=== PATIENT | female | born 1990 | race Caucasian/White ===

== ENCOUNTER 2018-03-05 22:50 | Emergency (ER) | payer BC, SELFPAY ==
[2018-03-05 22:51] VITALS: BP 110/74; PULSE 103; RESP 16; TEMP 37.9; O2SAT 100; BMI 28.3
--- NOTE | 2018-03-05 23:17 | EKG12_ITS ---
Test Reason : SYNCOPE Blood Pressure : / mmHG Vent. Rate : 089 BPM Atrial Rate : 089 BPM P-R Int : 166 ms QRS Dur : 108 ms QT Int : 362 ms P-R-T Axes : 063 076 056 degrees QTc Int : 440 ms Normal sinus rhythm Normal ECG Confirmed by MAURICE COPELAND, MARIA ESTHER ([id number]), business editor LUCAS ESQUIVEL ([id number] on 03/09/2018 1:45:26 PM Referred By: ATIF Confirmed By:MARIA ESTHER RICHARDS MD
--- NOTE | 2018-03-05 23:20 | ED.RN ---
NO OLD EKG'S IN MUSE
[2018-03-05 23:46] LABS: Mucous, Urine 0 SEEN /hpf (<or=2+); Red Blood Cells-Urine 0 SEEN /hpf (0-5); White Blood Cells 0 SEEN /hpf (0-5)
[2018-03-05] MEDS: 0.9% Normal Saline 1,000 ML 1000 ML IV (23:46)
[2018-03-05] MEDS: Ondansetron 4 MG/2 ML Vial IV (23:46)
[2018-03-05 23:48] VITALS: BP 115/65; BP 115/78; BP 121/71; PULSE 101; PULSE 109; PULSE 98
[2018-03-05 23:49] LABS: Color, Urine Yellow (Yellow); Glucose, Dipstick Normal (Normal); Ketone-Dipstick 5 mg/dl (Negative); Leukocyte Esterase-Dipstick Negative /ul (Negative); Nitrite-Dipstick Negative (Negative); Occult Blood-Urine Negative /ul (Negative); Protein-Dipstick Negative (Negative); Urine Bilirubin Dipstick Negative (Negative); Urine Clarity Clear (Clear); Urine Urobilinogen Normal (Normal)
[2018-03-05 23:52] LABS: Internal QC Validated? YES +Cl - CLEAR BKGD; Pregnancy, Urine Negative Negative
[2018-03-05 23:55] LABS: Squamous Epithelial Cells - UA 0-5 SEEN /hpf (5-10)
[2018-03-05 23:56] LABS: Bacteria RARE /hpf (None Seen)
[2018-03-05 23:56] LABS: ALB/GLOB Ratio 1.1 RATIO (0.9-2.4); AST(SGOT) 19 U/L (15-37); Alanine Aminotransfer ALT/SGPT 21 U/L (13-56); Albumin, Serum 4.4 g/dL (3.2-5.0); Alkaline Phosphatase 36 U/L (45-117); Anion Gap 8 (5-15); BUN 10 mg/dL (7-18); BUN/Creat Ratio 11.9 RATIO (10-20); Calcium,Total 9.4 mg/dL (8.5-10.1); Chloride 102 mmol/L (98-107); Creatinine, Serum 0.84 mg/dL (0.55-1.02); EST Glomerular Filtration Rate 87 mL/min (>60); Est Glom Filt Rate - Afr Amer 106 mL/min (>60); Estimated Creatinine Clearance 106.99 ml/min; Glucose 93 mg/dL (74-106); Lipase 119 U/L (73-393); Protein, Total 8.4 g/dL (6.4-8.2); Sodium Level 136 mmol/L (136-145)
[2018-03-06 00:12] LABS: Hematocrit 34.6 % (37-47); Hemoglobin 12.1 g/dl (12.0-15.0); Mean Corpuscular Hgb 30.7 pg (27.0-32.0); Mean Corpuscular Volume 87.8 fL (81-99); RBC Distribution Width SD 38.1 fl (35.1-43.9); Red Blood Count 3.94 M/mm3 (4.2-5.4); White Blood Count 18.5 K/mm3 (4.4-11.0)
[2018-03-06 00:13] LABS: Absolute Lymphocyte Count 0.84 X10^3/ul (0.83-4.51); Absolute Neutrophil Count 16.8 X10^3/uL (2.0-7.7); Basophil# 0.03 X10^3/uL; Basophil% 0.2 % (0-1); Eosinophil# 0.01 X10^3/uL; Eosinophils% 0.1 % (0-5); Lymphocyte # 0.84 X10^3/ul (4.0); Lymphocyte % 4.5 % (19-41); Monocyte# 0.79 X10^3/uL; Monocyte% 4.3 % (0-10); Neutrophil # 16.77 X10^3/uL (2.7-7.7); Neutrophil % 90.7 % (47-70); POSITIVE COUNT NO; POSITIVE DIFFERENTIAL NO; POSITIVE MORPHOLOGY NO; Platelet Count 231 K/mm3 (150-450)
[2018-03-06 00:47] LABS: D-Dimer Quantitative (DVT/PE) < 0.27 FEU/ug/m (0.27-0.49)
[2018-03-06 01:09] VITALS: RESP 16
--- NOTE | 2018-03-06 01:16 | CT_ITS ---
STUDY: CT ABDOMEN AND PELVIS WITH CONTRAST REASON FOR EXAM: Female, 27 years old. Pain RADIATION DOSAGE (If Supplied By Facility): CTDIvol = ( 15.61 ) mGy, DLP = ( 964.32 ) mGycm TECHNIQUE: Transaxial images were obtained from the dome of the diaphragm to the symphysis pubis with oral contrast. 100 ml of Isovue 300 contrast was administered. Sagittal and coronal images were reconstructed. Individualized dose optimization techniques were used for this CT. COMPARISON: None. FINDINGS: The visualized lung bases are unremarkable. The visualized portions of the heart are within normal limits. Normal liver. Normal gallbladder and extrahepatic biliary system. Normal spleen. Normal pancreas. Normal bilateral adrenal glands. Normal right kidney. 5 mm and 1 mm nonobstructing stones in the left kidney. 17 mm left renal cyst. Normal visualized stomach. Normal small intestine. Normal colon. The appendix is visualized and appears normal. Normal abdominal aorta. Normal inferior vena cava. Normal retroperitoneum. Normal urinary bladder. Mild free pelvic fluid. Normal abdominal wall. Normal osseous structures. CT/Abdomen/Pelvis WITH Contrast IMPRESSION: No evidence of acute intestinal pathology or acute obstructive uropathy. Free pelvic fluid. Electronically Signed: Que Carrillo MD at 3:12 EDT Tel , Service support ,
[2018-03-06 02:00] VITALS: TEMP 38.1
[2018-03-06] MEDS: Acetaminophen 500 MG Tablet 1000 MG PO (03:32)
--- NOTE | 2018-03-06 03:40 | US_ITS ---
STUDY: ULTRASOUND OF THE FEMALE PELVIS - COMPLETE REASON FOR EXAM: Female, 27 years old. Pelvic pain LMP: 02/10/2018 TECHNIQUE: Transvaginal TECHNICAL QUALITY: Adequate. COMPARISON: CT same day FINDINGS: The uterus is anteverted and is in a midline position. The uterus measures 6.4 x 4.5 x 3.3 cm. Normal uterine cervix. The endometrium measures 4 mm in thickness, and is hyperechoic. There is no demonstrated endometrial mass. There is no demonstrated myometrial mass. I.U.D. - The patient does not have an I.U.D. The right ovary is visualized. The right ovary measures 2.7 x 2.0 x 1.4 cm. There is no right ovarian cyst or ovarian mass. There is no visualized right adnexal mass or complex lesion. There is normal vascularity. The left ovary is visualized. The left ovary measures 2.8 x 2.8 x 1.9 cm. 1.6 x 1.5 x 1.1 cm cyst. There is no visualized left adnexal mass or complex lesion. There is normal vascularity. Mild free pelvic fluid. Polycystic ovary disease: No. US/Transvaginal Non- IMPRESSION: Left ovary cyst measuring up to 1.6 cm. Uterus and right ovary are normal. Mild free pelvic fluid. Electronically Signed: Que Carrillo MD at 5:21 EDT Tel , Service support ,
[2018-03-06] MEDS: Morphine 4 MG/ML Syringe IV (04:21)
[2018-03-06 04:50] VITALS: TEMP 37.2
--- NOTE | 2018-03-06 05:47 | ED.VISSUMM ---
- ER Visit Summary Date of Service: 03/06/18 Chief Complaint: Multiple complaints History of Present Illness: The patient is a 27 F who presents with multiple complaints. She complains of sore throat nasal drainage bilateral ear pain abdominal pain nausea vomiting and back pain and syncope. She is visiting from [place]. She was with her fianc? all day at [place] yesterday. They wrote multiple rides. She was getting pictures today for her engagement pictures. She began to feel dizzy and lightheaded. She had a headache and some epigastric abdominal pain. She initially attributed this to some dehydration from the day before. She was drinking water. She had stood up for a picture and became dizzy and lightheaded as if she may pass out and was able to walk over and sit down in a chair when she then lost consciousness. This was less than 1 minute. Afterwards she did have an episode of nonbloody nonbilious emesis. She has passed out before while in a hot shower going to the bathroom or related to pain. Her last menstrual period was 3 weeks ago. She otherwise denies recent illness. No chest pain shortness of breath cough diarrhea. Physical Examination: Initial heart rate 103 with temperature 100.2 vitals otherwise normal Moist mucous membranes TMs are clear Oropharynx is clear uvula midline no tonsillar enlargement or exudate Neck supple without adenopathy Heart regular rhythm slightly tachycardic no murmur Lungs are clear Abdomen soft nondistended she does have some epigastric tenderness but no guarding no rebound Genitourinary exam showed a small amount of vaginal discharge which was cultured no vaginal bleeding no cervical friability no cervical motion tenderness or adnexal mass or tenderness Test Results: EKG shows normal sinus rhythm at a rate of 89. Labs returned notable for white blood cell count of 18.5. Hepatic function lipase unremarkable. UA showed rare bacteria otherwise normal. is negative. D-dimer is negative. CT of the abdomen and pelvis showed free pelvic fluid otherwise normal. Pelvic ultrasound shows left ovarian cyst and free fluid. Emergency Department Course and Treatment: I do believe the patient's syncope was likely vasovagal. She has a history of what sounds like vasovagal syncope. She weighs having abdominal pain and had just stood up prior to her syncopal event. Her initial abdominal pain did not appear to be due to surgical pathology as she did have some reproducible tenderness but no guarding no rebound. However her white blood cell count did return significantly elevated so a CT the abdomen and pelvis was obtained which did not show any acute intra-abdominal pathology except for some pre-pelvic fluid. At the time of reevaluation the patient's temperature had slightly increased. She was given oral Tylenol and morphine for pain. On reexamination now she is complaining of lower abdominal and pelvic pain which is worse on the left and also radiates through into the back. Therefore pelvic ultrasound was obtained which showed a 1-1/2 cm left ovarian cyst. I do believe her pain is likely related to a ruptured ovarian cyst. At the time of reevaluation he is resting comfortably and does feel better. She is hemodynamic stable. I did speak to Dr. Muñiz, MANUSCRIPT EDITOR religion department chair who agreed that the degree of her leukocytosis is unusual for ruptured ovarian cyst but agrees that she should be safe for outpatient follow-up and no further intervention necessary at this time. There is no other obvious intra-abdominal pathology as her CT the abdomen is otherwise normal and she does not appear to have a surgical abdomen on exam. I do believe she is safe for outpatient follow-up and she was advised that she needs follow-up with her carbide die maker when she gets back home and should have repeat blood work as well. She was given clear instructions of specific signs and symptoms to monitor for and conditions which should prompt return here to the emergency department for reevaluation. Treatment Plan: [] Disposition: Discharge Impression: Left ovarian cyst Vasovagal syncope URI This note was generated with [employer] dictation software. It may contain incorrect words, spelling, and punctuation that were not noted in review of the chart prior to signing ED Disposition - Plan for ED Patient: Chief Complaint: Syncope Referrals: [facility] Doctor,Out of [Primary Care Provider] -
--- NOTE | 2018-03-06 05:50 | ED.DCSUM_ITS ---
- ER Visit Summary Date of Service: 03/06/18 Chief Complaint: Multiple complaints History of Present Illness: The patient is a 27 F who presents with multiple complaints. She complains of sore throat nasal drainage bilateral ear pain abdominal pain nausea vomiting and back pain and syncope. She is visiting from [place]. She was with her fianc? all day at [place] yesterday. They wrote multiple rides. She was getting pictures today for her engagement pictures. She began to feel dizzy and lightheaded. She had a headache and some epigastric abdominal pain. She initially attributed this to some dehydration from the day before. She was drinking water. She had stood up for a picture and became dizzy and lightheaded as if she may pass out and was able to walk over and sit down in a chair when she then lost consciousness. This was less than 1 minute. Afterwards she did have an episode of nonbloody nonbilious emesis. She has passed out before while in a hot shower going to the bathroom or related to pain. Her last menstrual period was 3 weeks ago. She otherwise denies recent illness. No chest pain shortness of breath cough diarrhea. Physical Examination: Initial heart rate 103 with temperature 100.2 vitals otherwise normal Moist mucous membranes TMs are clear Oropharynx is clear uvula midline no tonsillar enlargement or exudate Neck supple without adenopathy Heart regular rhythm slightly tachycardic no murmur Lungs are clear Abdomen soft nondistended she does have some epigastric tenderness but no guarding no rebound Genitourinary exam showed a small amount of vaginal discharge which was cultured no vaginal bleeding no cervical friability no cervical motion tenderness or adnexal mass or tenderness Test Results: EKG shows normal sinus rhythm at a rate of 89. Labs returned notable for white blood cell count of 18.5. Hepatic function lipase unremarkable. UA showed rare bacteria otherwise normal. is negative. D-dimer is negative. CT of the abdomen and pelvis showed free pelvic fluid otherwise normal. Pelvic ultrasound shows left ovarian cyst and free fluid. Emergency Department Course and Treatment: I do believe the patient's syncope was likely vasovagal. She has a history of what sounds like vasovagal syncope. She weighs having abdominal pain and had just stood up prior to her syncopal event. Her initial abdominal pain did not appear to be due to surgical pathology as she did have some reproducible tenderness but no guarding no rebound. However her white blood cell count did return significantly elevated so a CT the abdomen and pelvis was obtained which did not show any acute intra- abdominal pathology except for some pre-pelvic fluid. At the time of reevaluation the patient's temperature had slightly increased. She was given oral Tylenol and morphine for pain. On reexamination now she is complaining of lower abdominal and pelvic pain which is worse on the left and also radiates through into the back. Therefore pelvic ultrasound was obtained which showed a 1-1/2 cm left ovarian cyst. I do believe her pain is likely related to a ruptured ovarian cyst. At the time of reevaluation he is resting comfortably and does feel better. She is hemodynamic stable. I did speak to Dr. Muñiz, EVALUATION ANALYST container washer who agreed that the degree of her leukocytosis is unusual for ruptured ovarian cyst but agrees that she should be safe for outpatient follow- up and no further intervention necessary at this time. There is no other obvious intra-abdominal pathology as her CT the abdomen is otherwise normal and she does not appear to have a surgical abdomen on exam. I do believe she is safe for outpatient follow-up and she was advised that she needs follow-up with her inventory control planner when she gets back home and should have repeat blood work as well. She was given clear instructions of specific signs and symptoms to monitor for and conditions which should prompt return here to the emergency department for reevaluation. Treatment Plan: [] Disposition: Discharge Impression: Left ovarian cyst Vasovagal syncope URI This note was generated with [employer] dictation software. It may contain incorrect words, spelling, and punctuation that were not noted in review of the chart prior to signing ED Disposition - Plan for ED Patient: Chief Complaint: Syncope Referrals: [facility] Doctor,Out of [Primary Care Provider] -
--- NOTE | 2018-03-06 05:56 | ED.DEP ---
ED Disposition - Plan for ED Patient: Chief Complaint: Syncope Instructions: ED Cyst Ovarian, ED Syncope Vasovagal Prescriptions: Naproxen [Naprosyn] 500 mg PO BID PRN #20 tab Referrals: [facility] Doctor,Out of [Primary Care Provider] -
--- NOTE | 2018-03-06 05:59 | DCINST.ED_ITS ---
ED Disposition - Plan for ED Patient: Chief Complaint: Syncope Instructions: ED Cyst Ovarian, ED Syncope Vasovagal Prescriptions: Naproxen [Naprosyn] 500 mg PO BID PRN #20 tab Referrals: [facility] Doctor,Out of [Primary Care Provider] -
[2018-03-06 06:03] VITALS: BP 111/66; PULSE 88; RESP 18; O2SAT 96
[2018-03-06 06:11] LABS: Chlamydia Trachomatis by PCR Negative (Negative); Neisserai gonorrhoeae by PCR Negative (Negative); Probe Check PASS; Sample Adequacy Control PASS; Specimen Processing Control PASS
== END 2018-03-06 06:03 | disposition home or self-care (01) ==
PROVIDERS: Emergency Provider Emergency Medicine
DX: J06.9 Acute upper respiratory infection, unspecified (principal); N83.202 Unspecified ovarian cyst, left side; R42 Dizziness and giddiness
CPT/HCPCS: 74177; 76830; 80053; 81001; 81025; 83690; 85025; 85379; 87491; 87591; 93005; 93976; 96361; 96374; 96375; 99285; J7030; A4216; J2405